=== PATIENT | male | born 1980 | race Two or more races ===

== ENCOUNTER 2017-04-13 10:32 | Emergency (ER) | payer MEDICAID ==
[~2017-04-13] VITALS: Ht 172.7 cm; Wt 114.8 kg
[2017-04-13 12:00] VITALS: BP 146/91
== END 2017-04-13 14:20 | disposition home or self-care (01) ==
LOC: ER 10:32 → EDSEX 10:32 → ER 14:20
DX: R06.02 Shortness of breath (principal); I10 Essential (primary) hypertension
CPT/HCPCS: 71020; 93005